=== PATIENT | female | born 1995 | race Two or more races ===

== ENCOUNTER 2025-04-24 21:50 | Emergency (ER) | payer OTHER ==
[~2025-04-24] VITALS: Ht 157.5 cm; Wt 49.4 kg
[2025-04-24] MEDS ORDERED: BIKTARVY 50-201 EACH PO (22:38)
[2025-04-25] MEDS ORDERED: KETOROLAC TROMETHAMINE 30 MG VIAL IV STA (01:24)
[2025-04-25] MEDS ORDERED: KETOROLAC TROMETHAMINE 30 MG VIAL ONE (01:50)
[2025-04-25 02:33] LABS: BASO % 0.1 % (0.1-1.2); EOS # 0.03 (0.04-0.54); EOS % 0.4 % (0.7-7.0); HEMATOCRIT 30.2 % (34.1-44.9); LYMPH % 22.3 % (19.3-53.1); MEAN CORPUSCULAR HEMOGLOBIN 28.6 pg (25.6-32.2); NEUT # 4.18 (1.56-6.13); NEUT % 58.1 % (34.0-71.1); PLATELET COUNT 341 K/uL (163-369); RED CELL DISTRIBUTION WIDTH 12.9 % (11.6-14.4)
[2025-04-25 02:34] LABS: MONO % 18.1 % (4.7-12.5)
[2025-04-25 03:33] LABS: PH,URINE 6.5 (5.0-8.0); URINE APPEARANCE Clear; URINE BILIRRUBIN Negative (NEGATIVE); URINE BLOOD Negative; URINE COLOR Yellow; URINE GLUCOSE Negative (NEGATIVE); URINE KETONE Negative (NEGATIVE); URINE LEUKOCYTE Negative; URINE NITRATE Negative; URINE PROTEIN Trace (NEGATIVE)
[2025-04-25 03:37] LABS: URINE BACTERIA 845.7 uL (0.0-1933); URINE EPITHELIAL CELLS 20.7 uL (0.0-38.8); URINE RBC 9.7 uL (0.0-20.8)
[2025-04-25 03:41] LABS: URINE CAST 0.14 uL (0.0-1.40)
[2025-04-25 04:01] LABS: CALCIUM 8.4 mg/dL (8.5-10.1); CREATININE SERUM 0.68 mg/dL (0.55-1.02); GFR 101.59; POTASSIUM 4.31 mEq/L (3.5-5.1)
[2025-04-25 04:38] LABS: COVID-19 AG NEGATIVE (NEGATIVE)
[2025-04-25 04:50] LABS: INFLUENZA A AG NEGATIVE (NEGATIVE); INFLUENZA B AG NEGATIVE (NEGATIVE)
== END 2025-04-25 05:27 | disposition home or self-care (01) ==
LOC: ER 22:17
DX: R10.30 Lower abdominal pain, unspecified (principal); N83.201 Unspecified ovarian cyst, right side; Z20.822 Contact with and (suspected) exposure to COVID-19